=== PATIENT | female | born 2000 | race Hispanic/Latino ===

== ENCOUNTER 2021-12-03 20:34 | Day surgery (SDC) | payer OTHER ==
[2021-12-03 21:12] VITALS: BMI 42.7
[2021-12-03] MEDS ORDERED: hydrALAZINE 20 MG/ML VIAL SLOW IVP PRN (22:03)
[2021-12-03 22:10] LABS: Bilirubin Neg (Negative); Blood, Urine Negative (Negative); Clarity Clear (Clear); Glucose, Urine (Dipstick) Normal (Negative); Ketone, Urine Negative (Negative); Leukocyte Negative (Negative); Nitrite Negative (Negative); Protein, Urine (Dipstick) Negative (Neg-Trace); Urobilinogen Normal mg/dL (Less than 2)
[2021-12-03 22:46] LABS: Bacteria/HPF Rare-Few HPF (None Seen); RBC/HPF 0-3 HPF (0-3); WBC/HPF 0-3 HPF (0-3)
== END 2021-12-03 22:35 | disposition home or self-care (01) ==
LOC: CSHLD/OP 20:34
PROVIDERS: ATTEND Family Medicine
DX: O26.853 Spotting complicating pregnancy, third trimester (principal); O47.1 False labor at or after 37 completed weeks of gestation; Z3A.34 34 weeks gestation of pregnancy
CPT/HCPCS: 81001; 99283

== ENCOUNTER 2022-01-07 00:32 | Inpatient (IN) | payer OTHER ==
[2022-01-07 01:21] VITALS: BMI 44.6
[2022-01-07] MEDS ORDERED: Diphenoxylate HCl/Atropine Tablet PO PRN (01:30)
[2022-01-07] MEDS ORDERED: Acetaminophen 500 MG TAB PO PRN (01:30)
[2022-01-07] MEDS ORDERED: Butorphanol Tartrate 1 MG/ML VIAL SLOW IVP PRN (01:30)
[2022-01-07] MEDS ORDERED: Misoprostol 200 MCG TAB RC PRN (01:30)
[2022-01-07] MEDS ORDERED: Carboprost 250 MCG/ML AMP IM PRN (01:30)
[2022-01-07] MEDS ORDERED: NS w/ Oxytocin 30 units 500 ML IVPB SCH (01:30)
[2022-01-07] MEDS ORDERED: Ibuprofen 800 MG TAB PO PRN (01:30)
[2022-01-07] MEDS ORDERED: Ondansetron PF 4 MG/2 ML Vial IVP PRN (01:30)
[2022-01-07] MEDS ORDERED: NS w/ Oxytocin 30 units 500 ML IV SCH (01:30)
[2022-01-07] MEDS ORDERED: Lactated Ringer's 1,000 ML IV SCH (01:30)
[2022-01-07] MEDS ORDERED: Lidocaine 1% (PF) 30 ML VIAL SC PRN (01:30)
[2022-01-07] MEDS ORDERED: Promethazine HCl 25 MG/ML VIAL IM PRN (01:30)
[2022-01-07] MEDS ORDERED: hydrALAZINE 20 MG/ML VIAL SLOW IVP PRN (01:30)
[2022-01-07] MEDS ORDERED: Methylergonovine 0.2 MG/ML VIAL IM PRN (01:30)
[2022-01-07 02:13] LABS: Hemoglobin 10.6 g/dL (12.0-15.5); Mean Corpuscular HGB CONC 31.7 g/dL (32.0-36.0); Mean Corpuscular Hemoglobin 23.9 pg (27.0-33.0); Mean Corpuscular Volume 75.4 fl (81.6-98.3); Mean Platelet Volume 10.6 fl (7.4-10.4); Platelet Count 257 10x3/uL (150-450); RBC Distribution Width 15.4 % (11.5-14.5); Red Blood Cell (RBC) Count 4.43 10x6/uL (3.90-5.03); White Blood Cell (WBC) Count 14.8 10x3/uL (3.5-10.5)
[2022-01-07 02:44] LABS: Hep B Surf Ag Non-Reactive S/CO (NonReactive)
[2022-01-07 02:45] LABS: Syphilis Antibody Nonreactive (Nonreactive); Syphilis Antibody Index 0.08 S/CO (<1.00 Non-Reactive)
[2022-01-07 03:07] LABS: HBSAg Index 0.19 S/CO (0-0.99)
[2022-01-07 03:49] LABS: SARS-CoV-2 NAA Rapid Test Not Detected (NotDetected)
[2022-01-07 21:31] LABS: pH (Cord, venous) 7.304 (7.250-7.350)
[2022-01-08] MEDS ORDERED: Misoprostol 200 MCG TAB VAG PRN (01:24)
[2022-01-08] MEDS ORDERED: Methylergonovine 0.2 MG/ML VIAL IM PRN (01:24)
[2022-01-08] MEDS ORDERED: Milk Of Magnesia 30 ML UDCUP PO PRN (01:24)
[2022-01-08] MEDS ORDERED: hydrALAZINE 20 MG/ML VIAL SLOW IVP PRN (01:24)
[2022-01-08] MEDS ORDERED: Ondansetron PF 4 MG/2 ML Vial IVP PRN (01:24)
[2022-01-08] MEDS ORDERED: NS w/ Oxytocin 30 units 500 ML IV SCH (01:24)
[2022-01-08] MEDS ORDERED: Lanolin Ointment 7 GM TUBE TOP PRN (01:24)
[2022-01-08] MEDS ORDERED: Bisacodyl 10 MG SUPP PR PRN (01:24)
[2022-01-08] MEDS ORDERED: Boostrix 0.5 ML (Tdap) VIAL IM ONE (01:24)
[2022-01-08] MEDS ORDERED: Preparation H Ointment 28 GM TUBE PR PRN (01:24)
[2022-01-08] MEDS ORDERED: Benzocaine-Menthol 82.5 ML CAN TOP PRN (01:24)
[2022-01-08] MEDS ORDERED: Promethazine HCl 25 MG/ML VIAL IM PRN (01:24)
[2022-01-08] MEDS ORDERED: HYDROcodone/Acetaminophen 5/325 mg Tablet PO PRN ×2 (01:24)
[2022-01-08] MEDS: Prenatal Vitamin 1 TAB PO SCH (09:57)
[2022-01-08] MEDS: Docusate 100 MG CAP PO SCH ×2 (09:57→21:04)
[2022-01-08] MEDS: Ibuprofen 800 MG TAB PO SCH ×3 (09:57→18:07)
[2022-01-08] MEDS: Ferrous Sulfate 325 MG TAB PO SCH ×2 (14:42→14:45)
[2022-01-09] MEDS: Ibuprofen 800 MG TAB PO SCH ×2 (01:59→09:26)
[2022-01-09 07:24] VITALS: BP 121/65; TEMP 97.5
[2022-01-09] MEDS: Ferrous Sulfate 325 MG TAB PO SCH (08:45)
[2022-01-09] MEDS: Docusate 100 MG CAP PO SCH (08:51)
[2022-01-09] MEDS: Prenatal Vitamin 1 TAB PO SCH (08:51)
== END 2022-01-09 15:15 | disposition home or self-care (01) | DRG 806 ==
LOC: CSHLD/OP 00:32 → CSHLD 02:24 → CSHPP 01-08 11:48
PROVIDERS: ADMIT Family Medicine; ATTEND Family Medicine
PROC: 10D07Z6 Extraction of Products of Conception, Vacuum, Via Natural or Artificial Opening (ICD-10-PCS; principal; 2022-01-07)
PROC: 10H07YZ Insertion of Other Device into Products of Conception, Via Natural or Artificial Opening (ICD-10-PCS; 2022-01-07)
PROC: 0UQG7ZZ Repair Vagina, Via Natural or Artificial Opening (ICD-10-PCS; 2022-01-07)
DX: O42.02 Full-term premature rupture of membranes, onset of labor within 24 hours of rupture (principal); O71.4 Obstetric high vaginal laceration alone; Z37.0 Single live birth; Z3A.39 39 weeks gestation of pregnancy; F41.9 Anxiety disorder, unspecified; F32.A Depression, unspecified; O99.344 Other mental disorders complicating childbirth; J45.909 Unspecified asthma, uncomplicated; O99.52 Diseases of the respiratory system complicating childbirth; O76 Abnormality in fetal heart rate and rhythm complicating labor and delivery; Z20.822 Contact with and (suspected) exposure to COVID-19; O71.82 Other specified trauma to perineum and vulva
CPT/HCPCS: 36415; 82805; 85027; 86780; 86850; 86900; 86901; 87340; 99285; J0595; U0002